=== PATIENT | female | born 1940 | race Caucasian/White ===

== ENCOUNTER → 2016-11-04 | Outpatient (CLI) | payer MEDICARE | END | disposition home or self-care (01) | LOC: CFH 15:16 | PROVIDERS: ATTEND Nurse Practitioner | DX: S02.2XXA Fracture of nasal bones, initial encounter for closed fracture (principal); J32.0 Chronic maxillary sinusitis; W19.XXXA Unspecified fall, initial encounter; Y93.89 Activity, other specified; Y92.89 Other specified places as the place of occurrence of the external cause; Y99.8 Other external cause status | CPT/HCPCS: 70486 ==

== ENCOUNTER → 2020-07-28 | Outpatient (CLI) | payer MEDICARE ==
[~2020-07-28] MED LIST: OMNIPAQUE 350 MG/ML, 75ML BOTTLE ONE
[2020-07-28 12:15] LABS: ALANINE AMINOTRANSFERASE 55 U/L (12-78); ALBUMIN 2.8 g/dL (3.4-5.0); ANION GAP 10 mmol/L (5-15); CALCIUM 9.2 mg/dL (8.5-10.1); CHLORIDE 93 mmol/L (98-107)
[2020-07-28 12:18] LABS: ALKALINE PHOSPHATASE 192 U/L (45-117); TOTAL PROTEIN 8.1 g/dL (6.4-8.2)
== END | disposition home or self-care (01) ==
LOC: RAD 11:32
PROVIDERS: ATTEND Internal Medicine
DX: R91.8 Other nonspecific abnormal finding of lung field (principal)
CPT/HCPCS: 71260; 80053; Q9967

== ENCOUNTER → 2020-08-10 | Outpatient (CLI) | payer MEDICARE ==
[~2020-08-10] MED LIST changes: +ACID1TAB7 PO; +BENA10TA59 PO; +CEFD300C37 PO; +DOXY100T PO; +HYDR25TA6 PO; +LEVO50TA5 PO; -OMNIPAQUE 350 MG/ML, 75ML BOTTLE ONE; +SIMV20TA19 PO
== END | disposition home or self-care (01) ==
LOC: PETCFH 12:40
PROVIDERS: ATTEND Internal Medicine
DX: R91.8 Other nonspecific abnormal finding of lung field (principal)
CPT/HCPCS: 78815; A9552

== ENCOUNTER 2020-08-14 06:17 | Day surgery (SDC) | payer MEDICARE ==
[~2020-08-14] VITALS: Ht 154.9 cm; Wt 71.3 kg
[2020-08-14] MEDS ORDERED: ASPI81TA45 PO (07:29)
[2020-08-14] MEDS ORDERED: SODIUM CHLORIDE 0.9% 1,000 ML IV SCH (07:30)
[2020-08-14 07:59] VITALS: BP 154/84
[2020-08-14] MEDS ORDERED: FENTANYL PF 100 MCG/2ML ONE (08:21)
[2020-08-14] MEDS ORDERED: MIDAZOLAM 1 MG/ML, 5ML ONE (08:22)
[2020-08-14] MEDS ORDERED: NALOXONE 1 MG/ML, 2ML ONE (08:22)
[2020-08-14] MEDS ORDERED: FLUMAZENIL 0.1 MG/1 ML, 5ML ONE (08:22)
== END 2020-08-14 12:15 | disposition home or self-care (01) ==
LOC: OUT 06:17
PROVIDERS: ATTEND Internal Medicine
DX: C34.32 Malignant neoplasm of lower lobe, left bronchus or lung (principal); J98.4 Other disorders of lung; I12.9 Hypertensive chronic kidney disease with stage 1 through stage 4 chronic kidney disease, or unspecified chronic kidney disease; N18.30 Chronic kidney disease, stage 3 unspecified; E78.5 Hyperlipidemia, unspecified; K21.9 Gastro-esophageal reflux disease without esophagitis; M81.0 Age-related osteoporosis without current pathological fracture; Z79.82 Long term (current) use of aspirin; Z79.890 Hormone replacement therapy; Z79.899 Other long term (current) drug therapy; Z87.891 Personal history of nicotine dependence; Z88.5 Allergy status to narcotic agent; Z88.8 Allergy status to other drugs, medicaments and biological substances; Z90.2 Acquired absence of lung [part of]; Z98.890 Other specified postprocedural states
CPT/HCPCS: 32408; 88305; 88333; 99156; 99157; J2250; J3010; J7030; 77012; J2310

== ENCOUNTER → 2020-08-16 | Outpatient (CLI) | payer MEDICARE ==
[~2020-08-16] MED LIST changes: +ASPI81TA45 PO
== END | disposition home or self-care (01) ==
LOC: ROC 08:12
PROVIDERS: ATTEND Radiology Radiation Oncology
DX: C34.32 Malignant neoplasm of lower lobe, left bronchus or lung (principal); R91.8 Other nonspecific abnormal finding of lung field; D63.8 Anemia in other chronic diseases classified elsewhere; I10 Essential (primary) hypertension; E78.5 Hyperlipidemia, unspecified; E87.6 Hypokalemia; E03.9 Hypothyroidism, unspecified; E78.00 Pure hypercholesterolemia, unspecified; Z90.710 Acquired absence of both cervix and uterus; Z87.891 Personal history of nicotine dependence
CPT/HCPCS: G0463

== ENCOUNTER → 2020-08-30 | Outpatient (CLI) | payer MEDICARE ==
[~2020-08-30] MED LIST changes: +CHOL500015 PO; +CYAN25009 PO; +L.AC1CAP6 PO; +OMNIPAQUE 350 MG/ML, 75ML BOTTLE ONE; +cranberry PO
== END | disposition home or self-care (01) ==
LOC: RAD 12:52
PROVIDERS: ATTEND Internal Medicine
DX: C34.32 Malignant neoplasm of lower lobe, left bronchus or lung (principal)
CPT/HCPCS: 71260; Q9967

== ENCOUNTER 2020-09-01 07:47 | Day surgery (SDC) | payer MEDICARE ==
[~2020-09-01] VITALS: Ht 154.9 cm; Wt 70.8 kg
[~2020-09-01 07:47] MED LIST changes: -OMNIPAQUE 350 MG/ML, 75ML BOTTLE ONE
[2020-09-01 08:16] VITALS: BP 131/81
[2020-09-01] MEDS ORDERED: LACTATED RINGERS 1,000 ML IV SCH (08:30)
[2020-09-01] MEDS ORDERED: CHLORHEXIDINE 15 ML UDC PO ONE (08:30)
[2020-09-01] MEDS ORDERED: PROPOFOL 50 ML ONE (09:59)
[2020-09-01] MEDS ORDERED: FENTANYL PF 250 MCG/5ML ONE (09:59)
[2020-09-01] MEDS ORDERED: OXYcodone 5 MG/5 ML ORAL.SOL UDC PO PRN (10:30)
[2020-09-01] MEDS ORDERED: PROMETHAZINE 25 MG/ML, 1ML IVPush PRN (10:30)
[2020-09-01] MEDS ORDERED: DIPHENHYDRAMINE 50 MG/ML, 1ML IVPush PRN (10:30)
[2020-09-01] MEDS ORDERED: LABETALOL 5MG/ML, 20ML IV PRN (10:30)
[2020-09-01] MEDS ORDERED: ONDANSETRON 2MG/ML, 2ML IVPush PRN (10:30)
[2020-09-01] MEDS ORDERED: HYDROmorphone 1 MG/ML, 1ML INJ IVPush PRN (10:30)
[2020-09-01] MEDS ORDERED: EPHEDRINE 50 MG/ML, 1ML IVPush PRN (10:30)
[2020-09-01] MEDS ORDERED: DIAZEPAM 5 MG/ML, 2ML IVPush PRN (10:30)
[2020-09-01] MEDS ORDERED: FENTANYL PF 100 MCG/2ML IV PRN (10:30)
[2020-09-01] MEDS ORDERED: PLEASE ENTER ALLERGIES MC SCH (11:00)
[2020-09-01] MEDS ORDERED: ONDANSETRON 2MG/ML, 2ML ONE (11:19)
[2020-09-01] MEDS ORDERED: PROPOFOL 10 MG/ML, 20ML ONE (11:19)
[2020-09-01] MEDS ORDERED: ROCURONIUM 10MG/ML,5ML ONE (11:19)
[2020-09-01] MEDS ORDERED: DEXAMETHASONE 4 MG/ML, 5ML ONE (11:20)
[2020-09-01] MEDS ORDERED: SUCCINYLCHOLINE 20 MG/ML, 10ML ONE (11:20)
[2020-09-14] MEDS ORDERED: ASPI-696 PO (23:14)
[2020-09-15] MEDS ORDERED: TIMO5DRO37 OP (08:26)
== END 2020-09-01 13:10 | disposition home or self-care (01) ==
LOC: OUT 07:47
PROVIDERS: ATTEND Internal Medicine
DX: C34.32 Malignant neoplasm of lower lobe, left bronchus or lung (principal); R59.0 Localized enlarged lymph nodes; J98.4 Other disorders of lung; I12.9 Hypertensive chronic kidney disease with stage 1 through stage 4 chronic kidney disease, or unspecified chronic kidney disease; N18.30 Chronic kidney disease, stage 3 unspecified; E78.5 Hyperlipidemia, unspecified; K21.9 Gastro-esophageal reflux disease without esophagitis; M81.0 Age-related osteoporosis without current pathological fracture; Z20.822 Contact with and (suspected) exposure to COVID-19; Z79.82 Long term (current) use of aspirin; Z79.890 Hormone replacement therapy; Z79.899 Other long term (current) drug therapy; Z87.891 Personal history of nicotine dependence; Z88.5 Allergy status to narcotic agent; Z90.49 Acquired absence of other specified parts of digestive tract; Z96.643 Presence of artificial hip joint, bilateral; Z98.890 Other specified postprocedural states
CPT/HCPCS: 31624; 31625; 31652; 71045; 88112; 88172; 88173; 88177; 88305; 88333; J0330; J1100; J2405; J2704; J3010; J7120; U0003; U0005; 31654

== ENCOUNTER 2020-10-06 12:19 | Emergency (ER) | payer MEDICARE ==
[~2020-10-06] VITALS: Ht 157.5 cm; Wt 60.0 kg
[~2020-10-06 12:19] MED LIST changes: +ACET325T26 PO; +AMLO-150 PO; +ASPI-696 PO; +CEFT2FRO2 IVPB; +DEXA4VIA39 IVPush; +DOCU-131 PO; +INSU100I11 SQ-INSULIN; +INSU100I13 SQ-INSULIN; +PANT40TA6 PO; +SODI1TAB PO; +TIMO5DRO37 OP
[2020-10-06] MEDS ORDERED: SODIUM CHLORIDE FLUSH 10ML SYR IVF ONE (13:00)
--- NOTE | 2020-10-06 13:02 | NUR ---
OMAR FROM [facility], PER EMS, FAMILY REPORTS INCREASED CONFUSION, HALLUCINATIONS, AND ALTERED AWARENESS SINCE YESTERDAY. PT WAS SEEN HERE ON SEPTEMBER 15 AND FOUND INFECTION IN BRAIN, HAS NOT COMPLETED ABX. PT A&O, RESPS EVEN AND UNLABORED, DESTINY STOREY. DAUGHTER AT BEDSIDE, CALL LIGHT IN REACH.
[2020-10-06 13:20] LABS: BASOPHILS % (AUTO) 0 % (0-1); EOSINOPHILS % (AUTO) 0 % (1-7); LYMPHOCYTES % (AUTO) 3 % (22-44); MEAN CORPUSCULAR HEMOGLOBIN 25.6 pg (27.0-34.8); MEAN CORPUSCULAR HGB CONC 31.9 g/dL (32.4-35.8); MEAN PLATELET VOLUME 8.1 fL (7.4-10.4); MONOCYTES % (AUTO) 3 % (2-9); NEUTROPHILS % (AUTO) 93 % (42-75); PLATELET COUNT 91 x10^3/uL (130-400); RED BLOOD COUNT 4.75 x10^6/uL (3.82-5.3); RED CELL DISTRIBUTION WIDTH 20.1 % (9.6-15.2)
[2020-10-06 13:26] LABS: ALANINE AMINOTRANSFERASE 29 U/L (12-78); ALBUMIN 2.6 g/dL (3.4-5.0); ANION GAP 8 mmol/L (5-15); CALCIUM 8.2 mg/dL (8.5-10.1); CHLORIDE 99 mmol/L (98-107); CREATININE 0.52 mg/dL (0.55-1.02)
[2020-10-06 13:28] LABS: ALKALINE PHOSPHATASE 98 U/L (45-117); BILIRUBIN,TOTAL 0.5 mg/dL (0.2-1.0); TOTAL PROTEIN 6.4 g/dL (6.4-8.2)
--- NOTE | 2020-10-06 14:25 | NUR ---
PT CAME IN WITH CARUSO CATHETER FROM [facility], REMOVED AND REPLACED AT THIS TIME. PT TOLERATED WELL. UA COLLECTED, SENT TO LAB. PT A&O, RESPS EVEN AND UNLABORED, DESTINY STOREY.
--- NOTE | 2020-10-06 14:28 | NUR ---
PT TO MRI AT THIS TIME
[2020-10-06 14:32] LABS: MICROSCOPIC AUTO
[2020-10-06] MEDS ORDERED: GADOTERATE 7.5 MMOL/15ML SYR ONE (14:57)
--- NOTE | 2020-10-06 15:11 | NUR ---
Seth hill in [facility] - 10/06/20 at 1511 by SHAWNA aldore
--- NOTE | 2020-10-06 15:11 | NUR ---
preceptor RN note: pt remains in MRI
--- NOTE | 2020-10-06 15:37 | NUR ---
PT BACK FROM MRI, PT A&OX4, RESPS EVEN AND UNLABORED, NSR ON BUNDLE PACKER WITH NO ECTOPY. VSS. AWAITING MRI READ AND DISPO.
--- NOTE | 2020-10-06 16:31 | NUR ---
ruddy Abbott at bedside to discuss poc
[2020-10-06] MEDS ORDERED: DEXAMETHASONE 4 MG/ML, 1ML ONE (17:07)
--- NOTE | 2020-10-06 17:20 | NUR ---
PER MD, PICC LINE OK TO USE FOR FLUIDS/MEDICATION PER ORDER. PT RESTING IN BED, VSS, ALL MONITORS ATTACHED, NSR, NADN. FLUIDS INFUSING, MEDS GIVEN, PT TOLERATED WELL.
[2020-10-06] MEDS ORDERED: SODIUM CHLORIDE 0.9% 1,000ML IVBOLUS ONE (17:30)
[2020-10-06] MEDS ORDERED: DEXAMETHASONE 4 MG/ML, 1ML IVPush ONE (17:30)
--- NOTE | 2020-10-06 17:39 | NUR ---
PRECEPTOR RN NOTE: LABS AND UA REVIEWED BY EDMD, PER MD PT DOES NOT HAVE A UTI, NOT SEPTIC.
--- NOTE | 2020-10-06 18:15 | NUR ---
TP RN: [facility] CALLED AND WHEELCHAIR TRANSPORT SCHEDULED FOR [address] [facility].
--- NOTE | 2020-10-06 18:36 | NUR ---
REPORT CALLED TO RECEIVING CLAUDIO LAUREN AT [facility]
[2020-10-06 18:41] VITALS: BP 126/50
--- NOTE | 2020-10-06 18:42 | NUR ---
PT RESTING ON GURNEY, A&OX4, DENIES PAIN. NSR ON LAB SYSTEMS ANALYST WITH NO ECTOPY NOTED. AWAITING [facility] TRANSPORT BACK TO [facility]. DAUGHTER AT BEDSIDE.
--- NOTE | 2020-10-06 18:45 | NUR ---
BEDSIDE REPORT GIVEN TO KATHRYN SNYDER
--- NOTE | 2020-10-06 18:50 | NUR ---
REPORT GIVEN AT BEDSIDE TO CLAUDIO PERALTA.
--- NOTE | 2020-10-06 18:51 | NUR ---
TASK RN: PER PREVIOUS RN JENNA, FACILITY WAS CALLED AND GIVEN DC INSTRUCTIONS. THIS RN SPOKE WITH DAUGHTER TO REVIEW INSTRUCTIONS WELL. PT AWAITING [facility] TRANSPORT FOR [facility].
--- NOTE | 2020-10-06 19:36 | NUR ---
PT TRANSFERRED TO [facility]IA [facility] AT THIS TIME, PREVIOUS RN GAVE REPORT
== END 2020-10-06 19:38 | disposition home or self-care (01) ==
LOC: ED 12:37
DX: G93.40 Encephalopathy, unspecified (principal); G93.6 Cerebral edema; R41.82 Altered mental status, unspecified; R94.31 Abnormal electrocardiogram [ECG] [EKG]; I10 Essential (primary) hypertension
CPT/HCPCS: 36415; 70553; 80053; 81001; 85025; 87077; 87086; 87106; 87186; 93005; 96361; 96374; 99285; A9575; J1100; J7030

== ENCOUNTER 2020-10-25 08:24 | Day surgery (SDC) | payer MEDICARE ==
[2020-10-25] MEDS ORDERED: GADOTERATE 7.5 MMOL/15ML SYR ONE (09:39)
[2020-10-25] MEDS ORDERED: FENTANYL PF 100 MCG/2ML ONE (09:55)
[2020-10-25] MEDS ORDERED: MIDAZOLAM 1 MG/ML, 5ML ONE (09:55)
== END 2020-10-25 12:06 | disposition home or self-care (01) ==
LOC: RAD 08:24 → EDSTATUS 09:30 → RAD 12:06
PROVIDERS: ATTEND Internal Medicine Infectious Disease
DX: G06.0 Intracranial abscess and granuloma (principal); I10 Essential (primary) hypertension; Z87.891 Personal history of nicotine dependence
CPT/HCPCS: 70553; 99156; 99157; A9575; J2250; J3010

== ENCOUNTER 2020-11-13 07:47 | Outpatient (CLI) | payer MEDICARE ==
[~2020-11-13] VITALS: Ht 154.9 cm; Wt 71.1 kg
[2020-11-13 09:33] VITALS: BP 148/72
[2020-11-13] MEDS ORDERED: NALOXONE 1 MG/ML, 2ML ONE (09:43)
[2020-11-13] MEDS ORDERED: MIDAZOLAM 1 MG/ML, 5ML ONE (09:43)
[2020-11-13] MEDS ORDERED: FLUMAZENIL 0.1 MG/1 ML, 5ML ONE (09:43)
[2020-11-13] MEDS ORDERED: FENTANYL PF 100 MCG/2ML ONE ×2 (09:43)
[2020-11-13] MEDS ORDERED: GADOTERATE 10 MMOL/20ML SYR ONE (10:44)
== END 2020-11-13 12:38 | disposition home or self-care (01) ==
LOC: RAD 07:47
PROVIDERS: ATTEND Internal Medicine Infectious Disease
DX: G06.0 Intracranial abscess and granuloma (principal); I10 Essential (primary) hypertension; E11.9 Type 2 diabetes mellitus without complications; Z79.890 Hormone replacement therapy; Z79.899 Other long term (current) drug therapy; Z87.891 Personal history of nicotine dependence
CPT/HCPCS: 70553; 99156; 99157; A9575; J2250; J3010; J2310

== ENCOUNTER 2020-12-11 15:42 | Inpatient (IN) | payer MEDICARE ==
[~2020-12-11] VITALS: Ht 154.9 cm; Wt 72.4 kg
[2020-12-11 16:43] LABS: BASOPHILS % (AUTO) 1 % (0-1); EOSINOPHILS % (AUTO) 1 % (1-7); LYMPHOCYTES % (AUTO) 12 % (22-44); MEAN CORPUSCULAR HGB CONC 32.9 g/dL (32.4-35.8); MEAN PLATELET VOLUME 7.8 fL (7.4-10.4); MONOCYTES % (AUTO) 3 % (2-9); NEUTROPHILS % (AUTO) 83 % (42-75); PLATELET COUNT 210 x10^3/uL (130-400); RED CELL DISTRIBUTION WIDTH 21.7 % (9.6-15.2)
[2020-12-11 16:48] LABS: ALANINE AMINOTRANSFERASE 51 U/L (12-78); ALBUMIN 2.5 g/dL (3.4-5.0); ANION GAP 7 mmol/L (5-15); CALCIUM 8.9 mg/dL (8.5-10.1); CHLORIDE 104 mmol/L (98-107); CREATININE 0.55 mg/dL (0.55-1.02)
[2020-12-11 16:52] LABS: ALKALINE PHOSPHATASE 118 U/L (45-117); BILIRUBIN,TOTAL 0.9 mg/dL (0.2-1.0); TOTAL PROTEIN 6.6 g/dL (6.4-8.2); TROPONIN I < 0.015 ng/mL (0.000-0.045)
--- NOTE | 2020-12-11 17:38 | NUR ---
ribbon lap machine tender note: Pt to room from lobby.
--- NOTE | 2020-12-11 17:40 | NUR ---
PT TO ROOM FROM [facility], DAUGHTER AT BS, C/O AMS, SOB SINCE BEING DC [facility]. PER DAUGHTER PT WAS NOT READY TO BE DC AND NEEDS MORE CARE THAN SHE CAN PROVIDE AT HOME. 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
--- NOTE | 2020-12-11 17:46 | NUR ---
erp at bs for eval
--- NOTE | 2020-12-11 18:17 | NUR ---
JAISONH AT FOR EVAL
--- NOTE | 2020-12-11 18:45 | NUR ---
PT TOLERATED STRAIGHT CATH WELL. DESTINY. URINE SAMPLE WALKED TO LAB
--- NOTE | 2020-12-11 18:55 | NUR ---
REPORT TO CLAUDIO MONROY
--- NOTE | 2020-12-11 18:57 | NUR ---
RECEIVED REPORT OF ALEX SNYDER. TRANSFER OF CARE
[2020-12-11] MEDS ORDERED: POLYETHYLENE GLYCOL 17 GM PACKET PO PRN (19:00)
[2020-12-11] MEDS ORDERED: OXYcodone IR 5MG TABLET PO PRN (19:00)
[2020-12-11] MEDS ORDERED: DEXTROSE 50%, 50ML SYRINGE IVPush PRN (19:00)
[2020-12-11] MEDS ORDERED: GLUCAGON 1 MG IM PRN (19:00)
[2020-12-11] MEDS ORDERED: LIDODERM 5% PATCH TD PRN (19:00)
[2020-12-11] MEDS ORDERED: MELATONIN 5 MG TABLET PO PRN (19:00)
[2020-12-11] MEDS ORDERED: DEXTROSE 4 GM TAB.CHEW PO PRN (19:00)
[2020-12-11] MEDS ORDERED: ACETAMINOPHEN 325 MG TABLET PO PRN (19:00)
[2020-12-11 19:17] LABS: MICROSCOPIC INDICATED
[2020-12-11] MEDS: CEFTRIAXONE 2 GM in DEXTROSE 5% 50 ML IVPB SCH (20:07)
[2020-12-11] MEDS ORDERED: GLIP5TAB10 PO (20:13)
--- NOTE | 2020-12-11 20:14 | NUR ---
Gave report to judy corbett
--- NOTE | 2020-12-11 20:16 | NUR ---
PT GIVEN TURKEY AND CHEESE SANDWICH
[2020-12-11 20:41] VITALS: BP 110/74
[2020-12-11] MEDS: INSULIN LISPRO 100 UNITS/ML, PEN SQ-INSULIN SCH (21:00)
[2020-12-11] MEDS: SODIUM CHLORIDE FLUSH 10ML SYR IVF SCH (21:46)
[2020-12-11] MEDS: ENOXAPARIN 40 MG/0.4 ML SQ SCH (21:46)
[2020-12-12 00:55] VITALS: BP 104/67
[2020-12-12 06:29] LABS: CALCIUM 8.7 mg/dL (8.5-10.1); CHLORIDE 105 mmol/L (98-107)
[2020-12-12 06:34] LABS: ANION GAP 5 mmol/L (5-15); CREATININE 0.54 mg/dL (0.55-1.02)
[2020-12-12 06:47] VITALS: BP 110/72
[2020-12-12] MEDS: INSULIN LISPRO 100 UNITS/ML, PEN SQ-INSULIN SCH ×4 (07:00→22:02)
[2020-12-12] MEDS: SODIUM CHLORIDE FLUSH 10ML SYR IVF SCH ×2 (07:08→22:16)
[2020-12-12] MEDS ORDERED: DOCUSATE 100 MG CAPSULE PO PRN (08:30)
[2020-12-12] MEDS ORDERED: TIMOLOL MALEATE OP SCH (09:00)
[2020-12-12] MEDS ORDERED: LATANOPROST OP SCH (09:00)
[2020-12-12] MEDS: LACTOBACILLUS CHEW TABLET PO SCH (09:15)
[2020-12-12] MEDS: PANTOPRAZOLE 40MG TABLET PO SCH (09:15)
[2020-12-12] MEDS: LEVOTHYROXINE 50 MCG TABLET PO SCH (09:15)
[2020-12-12 09:49] LABS: BASOPHILS % (AUTO) 1 % (0-1); EOSINOPHILS % (AUTO) 1 % (1-7); LYMPHOCYTES % (AUTO) 6 % (22-44); MEAN CORPUSCULAR HEMOGLOBIN 26.9 pg (27.0-34.8); MEAN CORPUSCULAR HGB CONC 32.7 g/dL (32.4-35.8); MONOCYTES % (AUTO) 3 % (2-9); NEUTROPHILS % (AUTO) 90 % (42-75); PLATELET COUNT 186 x10^3/uL (130-400); RED BLOOD COUNT 3.55 x10^6/uL (3.82-5.3); RED CELL DISTRIBUTION WIDTH 22.4 % (9.6-15.2)
[2020-12-12 13:06] VITALS: BP 122/68
[2020-12-12] MEDS ORDERED: PHARMACOKINETIC MONITORING MC PRN (16:30)
[2020-12-12] MEDS ORDERED: VANCOMYCIN 1,700 MG in SODIUM CHLORIDE 0.9% 250 ML IV ONE (16:30)
[2020-12-12] MEDS ORDERED: PHARMACOKINETIC CONSULTATION MC ONE (16:30)
[2020-12-12] MEDS ORDERED: VANCOMYCIN PER PHARMACY MC PRN (16:30)
[2020-12-12 18:18] VITALS: BP 114/68
[2020-12-12 21:22] VITALS: BP 112/68
[2020-12-12] MEDS: SIMVASTATIN 20 MG TABLET PO SCH (22:11)
[2020-12-12] MEDS: LATANOPROST OPHTH 0.005%, 2.5ML EACHEYE SCH (22:11)
[2020-12-12] MEDS: CEFTRIAXONE 2 GM in DEXTROSE 5% 50 ML IVPB SCH (22:11)
[2020-12-12] MEDS: ENOXAPARIN 40 MG/0.4 ML SQ SCH (22:12)
[2020-12-13 01:40] VITALS: BP 114/61
[2020-12-13 04:19] VITALS: BP 112/54
[2020-12-13] MEDS: PANTOPRAZOLE 40MG TABLET PO SCH (05:49)
[2020-12-13] MEDS: LEVOTHYROXINE 50 MCG TABLET PO SCH (05:51)
[2020-12-13 05:56] VITALS: BP 120/74
[2020-12-13] MEDS: INSULIN LISPRO 100 UNITS/ML, PEN SQ-INSULIN SCH ×4 (07:00→21:00)
[2020-12-13 07:10] VITALS: BP 124/73
[2020-12-13] MEDS: CHOLECALCIFEROL 1,000 UNIT TABLET PO SCH (08:02)
[2020-12-13] MEDS: SODIUM CHLORIDE FLUSH 10ML SYR IVF SCH ×2 (08:02→21:13)
[2020-12-13] MEDS: LACTOBACILLUS CHEW TABLET PO SCH (08:02)
[2020-12-13 09:23] LABS: ANION GAP 8 mmol/L (5-15); CALCIUM 9.5 mg/dL (8.5-10.1); CHLORIDE 103 mmol/L (98-107); CREATININE 0.52 mg/dL (0.55-1.02)
[2020-12-13 09:24] LABS: HCT (SEDRATE) 29.8 % (34.6-47.8)
[2020-12-13 09:28] LABS: BASOPHILS % (AUTO) 1 % (0-1); EOSINOPHILS % (AUTO) 1 % (1-7); LYMPHOCYTES % (AUTO) 7 % (22-44); MEAN CORPUSCULAR HGB CONC 32.9 g/dL (32.4-35.8); MEAN PLATELET VOLUME 7.5 fL (7.4-10.4); MONOCYTES % (AUTO) 2 % (2-9); NEUTROPHILS % (AUTO) 89 % (42-75); PLATELET COUNT 211 x10^3/uL (130-400); RED BLOOD COUNT 3.63 x10^6/uL (3.82-5.3); RED CELL DISTRIBUTION WIDTH 21.3 % (9.6-15.2)
[2020-12-13 09:53] LABS: <PLATELET ESTIMATE> ADEQUATE; <PLT MORPHOLOGY> NORMAL PLT MORPH; ANISOCYTOSIS 1+
[2020-12-13] MEDS: TIMOLOL OPHTH 0.5%, 5ML EACHEYE SCH (11:19)
[2020-12-13 12:54] VITALS: BP 125/77
[2020-12-13] MEDS: VANCOMYCIN 1,400 MG in SODIUM CHLORIDE 0.9% 250 ML IV SCH (17:50)
[2020-12-13 19:04] VITALS: BP 129/32
[2020-12-13] MEDS: LATANOPROST OPHTH 0.005%, 2.5ML EACHEYE SCH (21:00)
[2020-12-13] MEDS: CEFTRIAXONE 2 GM in DEXTROSE 5% 50 ML IVPB SCH (21:10)
[2020-12-13] MEDS: SIMVASTATIN 20 MG TABLET PO SCH (21:12)
[2020-12-13] MEDS: ENOXAPARIN 40 MG/0.4 ML SQ SCH (21:13)
[2020-12-14 01:48] VITALS: BP 134/86
[2020-12-14 03:46] LABS: BASOPHILS % (AUTO) 1 % (0-1); EOSINOPHILS % (AUTO) 1 % (1-7); LYMPHOCYTES % (AUTO) 11 % (22-44); MEAN CORPUSCULAR HEMOGLOBIN 27.2 pg (27.0-34.8); MEAN CORPUSCULAR HGB CONC 33.5 g/dL (32.4-35.8); MEAN PLATELET VOLUME 7.5 fL (7.4-10.4); MONOCYTES % (AUTO) 3 % (2-9); NEUTROPHILS % (AUTO) 84 % (42-75); PLATELET COUNT 192 x10^3/uL (130-400); RED BLOOD COUNT 3.33 x10^6/uL (3.82-5.3); RED CELL DISTRIBUTION WIDTH 21.1 % (9.6-15.2)
[2020-12-14 03:59] LABS: ANION GAP 6 mmol/L (5-15); CALCIUM 8.9 mg/dL (8.5-10.1); CHLORIDE 102 mmol/L (98-107); CREATININE 0.49 mg/dL (0.55-1.02)
[2020-12-14] MEDS: PANTOPRAZOLE 40MG TABLET PO SCH (05:42)
[2020-12-14] MEDS: LEVOTHYROXINE 50 MCG TABLET PO SCH (05:42)
[2020-12-14 06:47] VITALS: BP 121/65
[2020-12-14] MEDS: INSULIN LISPRO 100 UNITS/ML, PEN SQ-INSULIN SCH ×4 (07:00→21:00)
[2020-12-14] MEDS: LACTOBACILLUS CHEW TABLET PO SCH (07:43)
[2020-12-14] MEDS: CHOLECALCIFEROL 1,000 UNIT TABLET PO SCH (07:43)
[2020-12-14] MEDS ORDERED: GADOTERATE 7.5 MMOL/15ML SYR ONE (08:20)
[2020-12-14] MEDS ORDERED: POTASSIUM CHLORIDE 20 MEQ TAB.ER.PRT PO ONE (10:30)
[2020-12-14] MEDS: TIMOLOL OPHTH 0.5%, 5ML EACHEYE SCH (11:02)
[2020-12-14] MEDS: SODIUM CHLORIDE FLUSH 10ML SYR IVF SCH ×2 (11:05→21:19)
[2020-12-14 15:25] VITALS: BP 113/68
[2020-12-14] MEDS: VANCOMYCIN 1,400 MG in SODIUM CHLORIDE 0.9% 250 ML IV SCH (17:33)
[2020-12-14 19:59] VITALS: BP 120/74
[2020-12-14] MEDS: SIMVASTATIN 20 MG TABLET PO SCH (21:00)
[2020-12-14] MEDS: CEFTRIAXONE 2 GM in DEXTROSE 5% 50 ML IVPB SCH (21:19)
[2020-12-14] MEDS: ENOXAPARIN 40 MG/0.4 ML SQ SCH (21:19)
[2020-12-14] MEDS: LATANOPROST OPHTH 0.005%, 2.5ML EACHEYE SCH (21:19)
[2020-12-15 00:17] VITALS: BP 123/75
[2020-12-15 04:33] LABS: BASOPHILS % (AUTO) 1 % (0-1); EOSINOPHILS % (AUTO) 2 % (1-7); LYMPHOCYTES % (AUTO) 12 % (22-44); MEAN CORPUSCULAR HEMOGLOBIN 27.4 pg (27.0-34.8); MEAN CORPUSCULAR HGB CONC 33.7 g/dL (32.4-35.8); MEAN PLATELET VOLUME 7.5 fL (7.4-10.4); MONOCYTES % (AUTO) 3 % (2-9); NEUTROPHILS % (AUTO) 82 % (42-75); PLATELET COUNT 224 x10^3/uL (130-400); RED BLOOD COUNT 3.45 x10^6/uL (3.82-5.3); RED CELL DISTRIBUTION WIDTH 20.7 % (9.6-15.2)
[2020-12-15 04:41] LABS: ANION GAP 3 mmol/L (5-15); CALCIUM 9.1 mg/dL (8.5-10.1); CHLORIDE 104 mmol/L (98-107)
[2020-12-15 04:42] LABS: CREATININE 0.54 mg/dL (0.55-1.02)
[2020-12-15 04:49] VITALS: BP 115/72
[2020-12-15] MEDS: LEVOTHYROXINE 50 MCG TABLET PO SCH (05:55)
[2020-12-15] MEDS: PANTOPRAZOLE 40MG TABLET PO SCH (05:55)
[2020-12-15] MEDS: INSULIN LISPRO 100 UNITS/ML, PEN SQ-INSULIN SCH ×4 (07:00→21:45)
[2020-12-15 07:21] VITALS: BP 123/74
[2020-12-15] MEDS: TIMOLOL OPHTH 0.5%, 5ML EACHEYE SCH (08:14)
[2020-12-15] MEDS: LACTOBACILLUS CHEW TABLET PO SCH (08:14)
[2020-12-15] MEDS: CHOLECALCIFEROL 1,000 UNIT TABLET PO SCH (08:14)
[2020-12-15] MEDS: SODIUM CHLORIDE FLUSH 10ML SYR IVF SCH ×2 (08:14→21:38)
[2020-12-15 13:20] VITALS: BP 112/68
[2020-12-15] MEDS: VANCOMYCIN 1,400 MG in SODIUM CHLORIDE 0.9% 250 ML IV SCH (16:55)
[2020-12-15 20:11] VITALS: BP 137/83
[2020-12-15] MEDS: ENOXAPARIN 40 MG/0.4 ML SQ SCH (21:36)
[2020-12-15] MEDS: CEFTRIAXONE 2 GM in DEXTROSE 5% 50 ML IVPB SCH (21:36)
[2020-12-15] MEDS: SIMVASTATIN 20 MG TABLET PO SCH (21:37)
[2020-12-15] MEDS: LATANOPROST OPHTH 0.005%, 2.5ML EACHEYE SCH (21:38)
[2020-12-16 00:16] VITALS: BP 112/70
[2020-12-16 05:18] LABS: HCT (SEDRATE) 24.9 % (34.6-47.8)
[2020-12-16 05:27] LABS: BASOPHILS % (AUTO) 1 % (0-1); EOSINOPHILS % (AUTO) 1 % (1-7); LYMPHOCYTES % (AUTO) 10 % (22-44); MEAN CORPUSCULAR HEMOGLOBIN 26.9 pg (27.0-34.8); MEAN PLATELET VOLUME 7.7 fL (7.4-10.4); MONOCYTES % (AUTO) 4 % (2-9); NEUTROPHILS % (AUTO) 84 % (42-75); PLATELET COUNT 223 x10^3/uL (130-400); RED BLOOD COUNT 3.14 x10^6/uL (3.82-5.3); RED CELL DISTRIBUTION WIDTH 20.9 % (9.6-15.2)
[2020-12-16] MEDS: PANTOPRAZOLE 40MG TABLET PO SCH (05:29)
[2020-12-16] MEDS: LEVOTHYROXINE 50 MCG TABLET PO SCH (05:29)
[2020-12-16 05:38] LABS: ANION GAP 8 mmol/L (5-15); CALCIUM 9.1 mg/dL (8.5-10.1); CHLORIDE 105 mmol/L (98-107)
[2020-12-16 05:46] LABS: CREATININE 0.34 mg/dL (0.55-1.02)
[2020-12-16] MEDS ORDERED: FUROSEMIDE 20 MG/2 ML IV SCH (08:30)
[2020-12-16] MEDS ORDERED: CHOL10003 PO (08:33)
[2020-12-16] MEDS ORDERED: ENOX40SY4 SQ (08:33)
[2020-12-16] MEDS ORDERED: ACET325T26 PO (08:33)
[2020-12-16] MEDS ORDERED: INSU100I11 SQ-INSULIN (08:33)
[2020-12-16] MEDS ORDERED: MELA5TAB14 PO (08:33)
[2020-12-16] MEDS ORDERED: CEFT2FRO2 IVPB (08:33)
[2020-12-16] MEDS ORDERED: POLY17PO5 PO (08:34)
[2020-12-16] MEDS ORDERED: BENA5TAB3 PO (08:42)
[2020-12-16] MEDS: INSULIN LISPRO 100 UNITS/ML, PEN SQ-INSULIN SCH (08:49)
[2020-12-16] MEDS ORDERED: POTASSIUM CHLORIDE 20 MEQ TAB.ER.PRT PO SCH (09:30)
[2020-12-16] MEDS: CHOLECALCIFEROL 1,000 UNIT TABLET PO SCH (10:06)
[2020-12-16] MEDS: LACTOBACILLUS CHEW TABLET PO SCH (10:06)
[2020-12-16] MEDS: SODIUM CHLORIDE FLUSH 10ML SYR IVF SCH (10:07)
[2020-12-16] MEDS: TIMOLOL OPHTH 0.5%, 5ML EACHEYE SCH (10:07)
[2020-12-16] MEDS ORDERED: FUROSEMIDE 20 MG TABLET ONE (10:20)
[2020-12-16 10:30] VITALS: BP 132/78
[2020-12-16] MEDS ORDERED: FUROSEMIDE 20 MG TABLET PO SCH (10:30)
== END 2020-12-16 14:34 | DRG 689 ==
LOC: ED 18:32 → UNDOADMOB 18:41 → EDIP 18:41 → 3N 20:39 → INTOOBSV 12-12 08:26 → OBSVTOIN 12-12 08:26 → 4WST 12-12 18:09
PROVIDERS: ADMIT Internal Medicine; ATTEND Internal Medicine
DX: N12 Tubulo-interstitial nephritis, not specified as acute or chronic (principal); G93.41 Metabolic encephalopathy; G06.0 Intracranial abscess and granuloma; E16.2 Hypoglycemia, unspecified; B96.1 Klebsiella pneumoniae [K. pneumoniae] as the cause of diseases classified elsewhere; E03.9 Hypothyroidism, unspecified; E78.5 Hyperlipidemia, unspecified; Z96.643 Presence of artificial hip joint, bilateral; R62.7 Adult failure to thrive; Z96.659 Presence of unspecified artificial knee joint; I11.0 Hypertensive heart disease with heart failure; I27.20 Pulmonary hypertension, unspecified; I50.9 Heart failure, unspecified; Z86.61 Personal history of infections of the central nervous system; Z90.49 Acquired absence of other specified parts of digestive tract; Z87.891 Personal history of nicotine dependence; Z90.710 Acquired absence of both cervix and uterus; Z68.30 Body mass index [BMI] 30.0-30.9, adult
CPT/HCPCS: 36415; 70450; 70553; 71045; 71046; 80048; 80053; 80202; 81001; 82728; 82962; 83540; 83550; 83605; 83735; 83880; 84100; 84443; 84484; 85025; 85651; 86140; 87040; 87077; 87086; 87186; 93005; 96365; 96372; G0378; J0696; J1650; J3370; 92523-GN; A9575; J7050